=== PATIENT | female | born 1965 | race African-American/Black ===

== ENCOUNTER 2017-09-24 13:19 | Inpatient (IN) | payer BC, MEDICAID ==
[2017-09-24 14:38] LABS: ABS Basophils 0.1 10^3/ul (0-0.2); ABS Eosinophils 0 10^3/ul (0-0.6); ABS Lymphocytes 1.1 10^3/ul (1.0-4.8); ABS Monocytes 0.6 10^3/ul (0-0.8); ABS Neutrophils 7.5 10^3/ul (1.5-7.7); ABS Nucleated RBC 0 10^3/ul; Eosinophil % 0 % (0-6); Hematocrit 37 % (35-47); Hemoglobin 12.1 g/dl (12.0-16.0); Lymphocyte % 12.1 % (25-47); Mean Corpuscular HGB Conc 33 g/dl (31-36); Mean Corpuscular Hemoglobin 28 pg (27-31); Mean Corpuscular Volume 87 fL (80-97); Mean Platelet Volume 8 um3 (7.4-10.4); Nucleated Red Blood Cells % 0.1; Platelet Count 333 10^3/ul (150-450); Red Blood Count 4.25 10^6/ul (4.0-5.4); Red Cell Distribution Width 14 % (10.5-15); White Blood Count 9.3 10^3/ul (3.5-10.8)
[2017-09-24 14:52] LABS: EGFR Non-African American 63.3 (>60)
[2017-09-24 18:11] LABS: Urine Appearance Cloudy; Urine Blood Negative (Negative); Urine Color Yellow; Urine Ketones 1+ (Negative); Urine Protein 1+(30 mg/dL) (Negative); Urine Specific Gravity 1.024 (1.010-1.030); Urine Urobilinogen Negative (Negative)
--- NOTE | 2017-09-25 05:00 | PN ---
I, Magali Vergara, scribed for Art Keyes MD on 09/25/17 at 0433 . Progress Note - Progress Note Date of Service: 09/25/17 Note: COURSE Pt was signed off from Dr. Merritt upon shift change. Pt was stable through the night. Pt was evaluated, but they are still waiting on placement for her with intended replacement to the facility she was recently discharged from in [place]. The documentation as recorded by the scribeUrsula Emily accurately reflects the service I personally performed and the decisions made by me, Art Keyes MD.
--- NOTE | 2017-09-25 09:33 | PN ---
ED Flex Patient Progress Note Date of Service: 09/25/17 Subjective: This is a 52 year-old F who is pending transfer/replacement to another psychiatric assisted care facility in [place] secondary to psychosis. Pt offers no complaints at this time and is currently sleeping. Objective: Vitals: Most recent vital signs documented below. General NAD, Alert and oriented x3. Heart: rrr at 79 bpm Lungs: CTA or with rales, rhonchi, wheezing Laboratory: Current laboratory results documented below. 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 Christiana TIM is speaking with Dr Velazquez as she is being told by [facility] that they do not have an available bed at this time. patient is on an MHU Hold at this time. Plan: Pending psychiatric transfer. will follow up daily. Vital Signs Temp Pulse Resp BP Pulse Ox 99.9 F 79 16 121/61 99 09/25/17 07:47 09/25/17 07:47 09/25/17 07:47 09/25/17 07:47 09/25/17 07:47 Lab Results - Entire Visit 09/24/17 09/24/17 09/24/17 17:32 17:32 14:25 WBC 9.3 RBC 4.25 Hgb 12.1 Hct 37 MCV 87 MCH 28 MCHC 33 RDW 14 Plt Count 333 MPV 8 Neut % (Auto) 81.0 Lymph % (Auto) 12.1 L [place] % (Auto) 6.1 Eos % (Auto) 0 Baso % (Auto) 0.8 Absolute Neuts (auto) 7.5 Absolute Lymphs (auto) 1.1 Absolute Monos (auto) 0.6 Absolute Eos (auto) 0 Absolute Basos (auto) 0.1 Absolute Nucleated RBC 0 Nucleated RBC % 0.1 Sodium Potassium Chloride Carbon Dioxide Anion Gap BUN Creatinine Est GFR ( Amer) Est GFR (Non-Af Amer) BUN/Creatinine Ratio Glucose Calcium Total Bilirubin AST ALT Alkaline Phosphatase Total Protein Albumin Globulin Albumin/Globulin Ratio TSH Urine Color Yellow Urine Appearance Cloudy Urine pH 6.0 Ur Specific [place] 1.024 Urine Protein 1+(30 mg/dl) A Urine Ketones 1+ A Urine Blood Negative Urine Nitrate Negative Urine Bilirubin Negative Urine Urobilinogen Negative Ur Leukocyte Esterase 1+ A Urine WBC (Auto) 2+(11-20/hpf) A Urine RBC (Auto) Absent Ur Squamous Epith Cells Present A Urine Bacteria Absent Hyaline Casts Present A Urine Glucose Negative Urine Ascorbic Acid * A Salicylates Urine Opiates Screen None detected Acetaminophen Ur Barbiturates Screen None detected Ur Phencyclidine Scrn None detected Ur Amphetamines Screen None detected U Benzodiazepines Scrn None detected Urine Cocaine Screen None detected U Cannabinoids Screen None detected Serum Alcohol 09/24/17 14:25 WBC RBC Hgb Hct MCV MCH MCHC RDW Plt Count MPV Neut % (Auto) Lymph % (Auto) [place] % (Auto) Eos % (Auto) Baso % (Auto) Absolute Neuts (auto) Absolute Lymphs (auto) Absolute Monos (auto) Absolute Eos (auto) Absolute Basos (auto) Absolute Nucleated RBC Nucleated RBC % Sodium 136 Potassium 3.1 L Chloride 97 L Carbon Dioxide 30 Anion Gap 9 BUN 15 Creatinine 0.93 Est GFR ( Amer) 81.4 Est GFR (Non-Af Amer) 63.3 BUN/Creatinine Ratio 16.1 Glucose 94 Calcium 9.3 Total Bilirubin 0.90 AST 27 ALT 17 Alkaline Phosphatase 46 Total Protein 7.1 Albumin 4.1 Globulin 3.0 Albumin/Globulin Ratio 1.4 TSH 1.37 Urine Color Urine Appearance Urine pH Ur Specific [place] Urine Protein Urine Ketones Urine Blood Urine Nitrate Urine Bilirubin Urine Urobilinogen Ur Leukocyte Esterase Urine WBC (Auto) Urine RBC (Auto) Ur Squamous Epith Cells Urine Bacteria Hyaline Casts Urine Glucose Urine Ascorbic Acid Salicylates < 2.50 Urine Opiates Screen Acetaminophen < 15 Ur Barbiturates Screen Ur Phencyclidine Scrn Ur Amphetamines Screen U Benzodiazepines Scrn Urine Cocaine Screen U Cannabinoids Screen Serum Alcohol < 10
--- NOTE | 2017-09-25 10:02 | ED ---
[place] Julia, scribed for Meir Merritt MD on 09/24/17 at 1413 . Psychiatric Complaint - HPI Summary HPI Summary: This patient is a 52 year old F BIBA, to [facility] without complaint. She states she doesnt know why she is here and that someone called an ambulance for her while she was at a caf. HPI is limited due to patients mental status. - History Of Current Complaint Time Seen by Provider: 09/24/17 13:52 Hx Obtained From: Patient Related History: Positive For: Prior Psychiatric Issues - Allergies/Home Medications Allergies/Adverse Reactions: Allergies Allergy/AdvReac Type Severity Reaction Status Date / Time Unable to Assess Allergy Verified 08/31/17 13:15 Home Medications: Home Medications NK [No Home Medications Reported] 09/24/17 [History Confirmed 09/24/17] PMH/Surg Hx/FS Hx/Imm Hx Psychiatric History: Reports: Hx Community Mental Health Tx, Hx Schizophrenia Denies: Hx Eating Disorder, Hx of Violent Episodes Against Others - Family History Known Family History: Positive: Unknown - FMHx is unattainable due to patients current mental status - Social History Substance Use Type: Reports: None Review of Systems Constitutional: Negative - does not have any complaints All Other Systems Reviewed And Are Negative: Yes - Comments Additional Review of Systems Comments: ROS is limited due to patient's mental state. Physical Exam - Summary Physical Exam Summary: Appearance: The patient is well-nourished in no acute distress and in no acute pain. Skin: The skin is warm and dry and skin color reflects adequate perfusion. HEENT: The head is normocephalic and atraumatic. The pupils are equal and reactive. The conjunctivae are clear and without drainage. Nares are patent and without drainage. Mouth reveals moist mucous membranes and the throat is without erythema and exudate. The external ears are intact. The ear canals are patent and without drainage. The tympanic membranes are intact. Neck: the neck is supple with full range of motion and non-tender. There are no carotid bruits. There is no neck vein distension. Respiratory: Chest is non-tender. Lungs are clear to auscultation and breath sounds are symmetrical and equal. Cardiovascular: Heart is regular rate and rhythm. There is no murmur or rub auscultated. There is no peripheral edema and pulses are symmetrical and equal. Abdomen: The abdomen is soft and non-tender. There are normal bowel sounds heard in all four quadrants and there is no organomegaly palpated. Musculoskeletal: There is no back tenderness noted. Extremities are non-tender with full range of motion. There is good capillary refill. There is no peripheral edema or calf tenderness elicited. Neurological: Patient is alert and oriented to person, place and time. The patient has symmetrical motor strength in all four extremities. Cranial nerves are grossly intact. Deep tendon reflexes are symmetrical and equal in all four extremities. Psychiatric: The patient is guarding and possibly attending to internal stimuli. Triage Information Reviewed: Yes Vital Signs On Initial Exam: Initial Vitals Temp Pulse Resp BP Pulse Ox 97.6 F 96 16 145/88 96 09/24/17 14:03 09/24/17 14:03 09/24/17 14:03 09/24/17 14:03 09/24/17 14:03 Vital Signs Reviewed: Yes Diagnostics - Vital Signs Vital Signs Temp Pulse Resp BP Pulse Ox 09/25/17 07:47 99.9 F 79 16 121/61 99 09/25/17 06:55 100.7 F 82 18 132/79 96 09/24/17 22:50 97.8 F 88 16 138/84 98 09/24/17 14:03 97.6 F 96 16 145/88 96 - Laboratory Lab Results: Lab Results 09/24/17 09/24/17 09/24/17 Range/Units 14:25 14:25 17:32 WBC 9.3 (3.5-10.8) 10^3/ul RBC 4.25 (4.0-5.4) 10^6/ul Hgb 12.1 (12.0-16.0) g/dl Hct 37 (35-47) % MCV 87 (80-97) fL MCH 28 (27-31) pg MCHC 33 (31-36) g/dl RDW 14 (10.5-15) % Plt Count 333 (150-450) 10^3/ul MPV 8 (7.4-10.4) um3 Neut % (Auto) 81.0 (38-83) % Lymph % (Auto) 12.1 L (25-47) % [place] % (Auto) 6.1 (0-7) % Eos % (Auto) 0 (0-6) % Baso % (Auto) 0.8 (0-2) % Absolute Neuts (auto) 7.5 (1.5-7.7) 10^3/ul Absolute Lymphs (auto) 1.1 (1.0-4.8) 10^3/ul Absolute Monos (auto) 0.6 (0-0.8) 10^3/ul Absolute Eos (auto) 0 (0-0.6) 10^3/ul Absolute Basos (auto) 0.1 (0-0.2) 10^3/ul Absolute Nucleated RBC 0 10^3/ul Nucleated RBC % 0.1 Sodium 136 (133-145) mmol/L Potassium 3.1 L (3.5-5.0) mmol/L Chloride 97 L (101-111) mmol/L Carbon Dioxide 30 (22-32) mmol/L Anion Gap 9 (2-11) mmol/L BUN 15 (6-24) mg/dL Creatinine 0.93 (0.51-0.95) mg/dL Est GFR ( Amer) 81.4 (>60) Est GFR (Non-Af Amer) 63.3 (>60) BUN/Creatinine Ratio 16.1 (8-20) Glucose 94 (70-100) mg/dL Calcium 9.3 (8.6-10.3) mg/dL Total Bilirubin 0.90 (0.2-1.0) mg/dL AST 27 (13-39) U/L ALT 17 (7-52) U/L Alkaline Phosphatase 46 (34-104) U/L Total Protein 7.1 (6.4-8.9) g/dL Albumin 4.1 (3.2-5.2) g/dL Globulin 3.0 (2-4) g/dL Albumin/Globulin Ratio 1.4 (1-3) TSH 1.37 (0.34-5.60) mcIU/mL Urine Color Urine Appearance Urine pH (5-9) Ur Specific [place] (1.010-1.030) Urine Protein (Negative) Urine Ketones (Negative) Urine Blood (Negative) Urine Nitrate (Negative) Urine Bilirubin (Negative) Urine Urobilinogen (Negative) Ur Leukocyte Esterase (Negative) Urine WBC (Auto) (Absent) Urine RBC (Auto) (Absent) Ur Squamous Epith Cells (Absent) Urine Bacteria (Absent) Hyaline Casts (Absent) Urine Glucose (Negative) Urine Ascorbic Acid (Negative) Salicylates < 2.50 (<30) mg/dL Urine Opiates Screen None detected (None Detect) Acetaminophen < 15 mcg/mL Ur Barbiturates Screen None detected (None Detect) Ur Phencyclidine Scrn None detected (None Detect) Ur Amphetamines Screen None detected (None Detect) U Benzodiazepines Scrn None detected (None Detect) Urine Cocaine Screen None detected (None Detect) U Cannabinoids Screen None detected (None Detect) Serum Alcohol < 10 (<10) mg/dL 09/24/17 Range/Units 17:32 WBC (3.5-10.8) 10^3/ul RBC (4.0-5.4) 10^6/ul Hgb (12.0-16.0) g/dl Hct (35-47) % MCV (80-97) fL MCH (27-31) pg MCHC (31-36) g/dl RDW (10.5-15) % Plt Count (150-450) 10^3/ul MPV (7.4-10.4) um3 Neut % (Auto) (38-83) % Lymph % (Auto) (25-47) % [place] % (Auto) (0-7) % Eos % (Auto) (0-6) % Baso % (Auto) (0-2) % Absolute Neuts (auto) (1.5-7.7) 10^3/ul Absolute Lymphs (auto) (1.0-4.8) 10^3/ul Absolute Monos (auto) (0-0.8) 10^3/ul Absolute Eos (auto) (0-0.6) 10^3/ul Absolute Basos (auto) (0-0.2) 10^3/ul Absolute Nucleated RBC 10^3/ul Nucleated RBC % Sodium (133-145) mmol/L Potassium (3.5-5.0) mmol/L Chloride (101-111) mmol/L Carbon Dioxide (22-32) mmol/L Anion Gap (2-11) mmol/L BUN (6-24) mg/dL Creatinine (0.51-0.95) mg/dL Est GFR ( Amer) (>60) Est GFR (Non-Af Amer) (>60) BUN/Creatinine Ratio (8-20) Glucose (70-100) mg/dL Calcium (8.6-10.3) mg/dL Total Bilirubin (0.2-1.0) mg/dL AST (13-39) U/L ALT (7-52) U/L Alkaline Phosphatase (34-104) U/L Total Protein (6.4-8.9) g/dL Albumin (3.2-5.2) g/dL Globulin (2-4) g/dL Albumin/Globulin Ratio (1-3) TSH (0.34-5.60) mcIU/mL Urine Color Yellow Urine Appearance Cloudy Urine pH 6.0 (5-9) Ur Specific [place] 1.024 (1.010-1.030) Urine Protein 1+(30 mg/dl) A (Negative) Urine Ketones 1+ A (Negative) Urine Blood Negative (Negative) Urine Nitrate Negative (Negative) Urine Bilirubin Negative (Negative) Urine Urobilinogen Negative (Negative) Ur Leukocyte Esterase 1+ A (Negative) Urine WBC (Auto) 2+(11-20/hpf) A (Absent) Urine RBC (Auto) Absent (Absent) Ur Squamous Epith Cells Present A (Absent) Urine Bacteria Absent (Absent) Hyaline Casts Present A (Absent) Urine Glucose Negative (Negative) Urine Ascorbic Acid * A (Negative) Salicylates (<30) mg/dL Urine Opiates Screen (None Detect) Acetaminophen mcg/mL Ur Barbiturates Screen (None Detect) Ur Phencyclidine Scrn (None Detect) Ur Amphetamines Screen (None Detect) U Benzodiazepines Scrn (None Detect) Urine Cocaine Screen (None Detect) U Cannabinoids Screen (None Detect) Serum Alcohol (<10) mg/dL Result Diagrams: 09/24/17 14:25 09/24/17 14:25 Lab Statement: Any lab studies that have been ordered have been reviewed, and results considered in the medical decision making process. - EKG 1629 Cardiac Rate: NL - 86 BPM EKG Rhythm: Sinus Rhythm EKG Interpretation: early repolarization, no LVH Course/Dx - Course Course Of Treatment: Ms. Rudd has apparently been hospitalized for an extended period of time in [place]. She was just recently released and then apparently was found today at her ex husbands office, She was not very communicative and not making much sense when she tried and brought here on a 941 status. She has been medically cleared and is being evaluated by the [facility]. - Differential Dx/Clinical Impression Provider Diagnosis: Psychosis Discharge - Discharge Plan Condition: Stable Disposition: OTHER Discharge Disposition Comment: Signed out to Dr. Keyes at change of shift Referrals: Kristen Huffman MD [Primary Care Provider] - The documentation as recorded by the Balta reynolds Julia accurately reflects the service I personally performed and the decisions made by me, Meir Merritt MD.
[2017-09-25] MEDS ORDERED: Al Hydrox/Mg Hydrox/Simet LIQ* 30 ML UDC PO PRN (13:11)
[2017-09-25] MEDS ORDERED: OLANzapine TAB* 10 MG PO SCH (21:00)
--- NOTE | 2017-09-26 00:45 | HP ---
HISTORY AND PHYSICAL: DATE OF ADMISSION: 09/25/2017. SOURCE OF INFORMATION: The patient is a limited historian. This note is based on interview with the patient, review of previous records, and admission data. IDENTIFYING INFORMATION: Ms. Rudd is a 52-year-old, , [place]- French female with documented history of schizophrenia, paranoid type, who was last admitted in our facility in 2012 and was transferred to [facility] for long- term treatment. Notes indicate that she remained there for 5 years until about 09/08/17 when she reportedly signed herself out against medical advice. The patient herself asserts that she was discharged. She used what little money she had to take a bus to [place] and to stay at a local inn from 09/08/17 to 09/20/17 , when she reportedly ran out of money, became homeless, and had no way of feeding herself. Reportedly, she was brought in by EMS due to concern about her decompensating mental state and inability to care for herself in the community. The patient apparently went to [place], where her ex- works and he notified [place] Police and she was driven to the emergency room of this hospital and was subsequently admitted. REVIEW OF SYMPTOMS: She denies persistently depressed mood. She denies symptoms of gabby. She avidly denies auditory or visual hallucinations or delusions. She is reasonably organized in her thinking and behavior, but she presents with alogia, anergia, and flat affect. She denies problems with anxiety. She denies trauma, PTSD symptoms. Denies symptoms of eating disorder , but presents as severely malnourished. PAST PSYCHIATRIC HISTORY: The patient has history of multiple previous admissions here and in [place] for treatment of psychosis. She had outpatient care at [facility] in the past with psychiatrist, Teri Taylor, and therapist, Roz Llanes. She was diagnosed in the past with psychosis and later with chronic paranoid schizophrenia. She has had trial of olanzapine, Haldol, and risperidone, and was last discharged on olanzapine. She does not have any history of attempted suicide, self-injury, or violent behavior. PAST MEDICAL HISTORY: The patient denies any active medical problems. FAMILY HISTORY: Previous record indicates sister with similar condition and grandmother with potential mental health symptoms. SUBSTANCE ABUSE HISTORY: The patient denies. SOCIAL HISTORY: She was brought and raised in [facility] by both parents, had 3 sisters and 2 brothers. Her third brother when she was teenager. She came to the [place] in [place] and in 1986 and in 2001. She has 15 -year-old daughter and a 13-year-old son. She reports with tears in her eyes that she has not seen her children in 5-1/2 years. She graduated from [employer] and she worked in the past at [employer]. REVIEW OF SYSTEMS: The patient presents as severely malnourished. PHYSICAL EXAMINATION GENERAL: The patient is a 52-year-old black female, who appears severely malnourished. She does not, however, appear to be in any acute physical distress. She is alert, oriented x3. VITAL SIGNS: On admission, blood pressure is 132/79, pulse is 82, respirations 18, temperature is 100.7. HEENT: Mucous membranes are dried up and flaking. HEENT: Head, atraumatic, normocephalic, symmetrical. Eyes, PERRLA. Tympanic membranes intact. Sclerae anicteric. Conjunctivae clear. NECK: Trachea midline, freely mobile. No cervical lymphadenopathy. No nuchal rigidity. LUNGS: Clear to auscultation bilaterally. HEART: Regular rate and rhythm. S1 and S2. No murmurs, gallops, or rubs. ABDOMEN: Soft, nontender. No masses, organomegaly, or rebound tenderness. Active bowel sounds in all 4 quadrants. EXTREMITIES: No pain or limitation in range of movement. Pulses are equal and adequate in all 4 extremities. NEUROLOGIC: Cranial nerves II through XII intact. Cerebellar function intact. Muscle strength is 2/5 in all 4 extremities. STRUCTURAL EXAM: The patient examined in both supine and upright positions. No gross AP or lateral asymmetry. The patient walked very slowly and with difficulty. SKIN: Dry. MENTAL STATUS EXAMINATION: Finds a cachectic, 52-year-old, black female, who is poorly groomed, dressed in hospital scrubs. She is found in bed, seems surprised at the calling of her name. She has to be helped by nursing staff to get out of bed. She walks slowly but denies any pain. Speech is terse. She exhibits a significant degree of psychomotor retardation. No abnormal movements are observed. Her thoughts are linear but impoverished. No overt delusions, and she denies auditory or visual hallucinations. Her insight and judgment are grossly impaired. Impulse control is good in this setting. She is alert. She is oriented to time, place, and person. Attention, memory, and concentration are all poor. LABORATORY DATA: On admission, CBC within normal limits. Complete metabolic panel shows potassium of 3.1, chloride of 97. Urinalysis: 1+ protein, 1+ ketones, 1+ leukocyte esterase, 2+ wbc's, presence of squamous epithelial cells , and hyaline cast. Urine toxicology screen is negative for all tested substances. SUMMARY: A 52-year-old woman with history of psychiatric hospitalizations, previous diagnoses of psychosis and chronic paranoid schizophrenia, who recently came out of long-term stay from [facility] and returned to this community with little means to support herself. The patient was brought in by EMS from the community because of her inability to take care for herself. Medical history is remarkable for malnutrition. There is family history of the patient having relatives with similar symptoms. The patient described stressors of homelessness, not having seen her children in years, and desire to stay in this community. DIAGNOSTIC IMPRESSION: Chronic paranoid schizophrenia. TREATMENT PLAN: Admit to mental health unit. 15-minute checks. Full code status. Legal status is emergency. Initial comprehensive, milieu, individual, and group psychotherapeutic supports. Medication management will involve restarting the patient on risperidone after clarifying the last dose she was on. The patient is agreeable to continuing the medication. Discharge planning will involve coordination of her aftercare with [facility]. [id number]/[facility] #: [id number] MERY
[2017-09-26] MEDS: risperiDONE TAB* 2 MG PO SCH (01:00)
[2017-09-26] MEDS: Vitamin THERAPEUTIC TAB PO SCH (09:01)
[2017-09-27] MEDS: Vitamin THERAPEUTIC TAB PO SCH (09:09)
--- NOTE | 2017-09-27 15:02 | PN ---
[facility]: Group Therapy Note - Service Type Service Type: [id number] Group Psychotherapy - Cognitive Behavioral Group Therapy ( CBT):Patient attended CBT programming this morning and presented with flat affect that did not vary with discussion. Although responsive to direct prompts to respond to questions, patient did not engage in spontaneous conversation.
--- NOTE | 2017-09-27 18:01 | PN ---
Subjective - Subjective Date of Service: 09/27/17 Subjective: Melissa is visible in the milieu, showing more affect, she endorses restful sleep , euthymic mood, denies SI/HI or A/VH. She denies side effects after restarting Risperidone. She is hopeful for discharge with [facility] and [facility]. Per staff, she has been adherent to unit's routines. Objective - Appearance Appearance: Thin Framed Dysmorphic Features: No Hygiene: Normal Grooming: Fairly Well Kept - Behavior Psychomotor Activities: Normal Exhibits Abnormal Movement: No - Attitude and Relatedness Attitude and Relatedness: Cooperative Eye Contact: Fair - Speech Quality: Unpressured Latencies: Normal Quantity: Appropriate - Mood Patient's Decription of Mood: "Okay" - Affect Observed Affect: Non-labile Affect Consistent with: Euthymia - Thought Process Patient's Thought Process: Coherent, Impoverished Thought Content: No Passive Wish, No Suicidal Planning, No Homicidal Ideation, No Paranoid Ideation - Sensorium Experiencing Hallucinations: No, Sensorium is Clear - Level of Consciousness Level of Consciousness: Alert Orientation: Yes Intact - Impulse Control Impulse Control: Intact - Insight and Judgement Insight and Judgement: Fair - Group Participation Particating in Group Activities: Yes - Medication Management Medication Management Adherence: Yes Assessment - Assessment Merits Inpatient Hospitalization: For Ongoing Evaluation, Consolidate Improvements, For Discharge Planning Inpatient DSM-V Dx: F20.0 Clinical Impression: SUMMARY: A 52-year-old woman with history of psychiatric hospitalizations, previous diagnosis of psychosis and chronic paranoid schizophrenia who recently came out of long-term stay from [facility] and returned to this community with little means to support herself. There are some divergences as to whether or not the patient was brought in by EMS from the community after people called to report that she looked unable to take care of herself or whether the patient showed up at at her ex- 's job and was brought in by [place] Police. Medical history is remarkable for malnutrition. There is family history of the patient having relatives with similar symptoms. The patient described stressors of homelessness, not having seen her children in years, and desire to stay in this community. Adjusting well to this setting, reporting lower distress level, denying psychotic symptoms, tolerating restarting of Risperidone. She needs continued admission for discharge planning. Plan - Plan Treatment Plan: Name: MELISSA FELIZ Birthdate: 1965 [id number] Continued Medication Management: Continue Outpt Medication Medications: Current Medications Acetaminophen (Tylenol Tab*) 650 mg PO Q4H PRN PRN Reason: PAIN or TEMP > 101 F Al Hydrox/Mg Hydrox/Simethicone (Maalox Plus*) 30 ml PO Q4H PRN PRN Reason: INDIGESTION Multivitamins (Theragran Tab*) 1 tab PO DAILY [facility] Last Admin: 09/27/17 09:09 Dose: 1 tab Risperidone (Risperdal*) 2 mg PO BEDTIME [facility] Last Admin: 09/27/17 00:00 Dose: Not Given - Discharge Plan Discharge Plan: Outpatient Follow Up Outpatient Program: [facility]
[2017-09-27] MEDS: risperiDONE TAB* 2 MG PO SCH ×2 (20:58)
[2017-09-28] MEDS: Vitamin THERAPEUTIC TAB PO SCH (09:44)
--- NOTE | 2017-09-28 11:49 | PN ---
Subjective - Subjective Subjective: PSYCHIARIC ATTENDING PROGRESS NOTE: Dr. Velazquez's admitting psychiatric evaluation (H and P) reviewed and appreciated. to summarize, patient is a 52 yo woman of [facility] heritage with a history of onset of mental illness after of her two children who are ages 15 and 17 currently. patient would have been in her mid 30's. Prior to that she denies history of mental illness. 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 they moved to [place], raised a family. ultimately has multiple psychiatric hospitalizations, was diagnosed with paranoid schizophenia. patient transferred to [facility] from [facility] 5 years ago. patient was discharged from that institution two weeks ago. It is presently unclear whether she was discharged or signed herself out against medical advise. In either case she lived in a motel with barron she had and then ran out of money. She showed up at her ex husbands place of work at [employer] recently. She was felt to be decompensated in her mental status and unable to take care of herself. She also was mute and showing significant psychomotor slowing. she was brought to hospital for further evaluation. I met with patient and my impression of patient's mental status evaluation lines up very closely with that of Dr. Velazquez's. patient presented as poorly related, with intense eye contact. physical appearance shows a 52 year old dark skinned woman who is underweight, has poor nutritional status including temporal wasting and greatly reduced subcutaneous fat stores. Her eyes are sunken. Her hair shows thinning but no bald spots. psychomotor behavior is markely slowed with decreased spontaneity, bradykinesia, slow speech, increased latency in response time. Mood: is dysphoric affect is both flat, blunted with no range in responses and very low amplitude, thought process: patient able to carry out linear, and coherent conversation but she has attentional difficulties and at times misundertands what has been asked of her, while other times her responses start logical but then she fails to complete her response likely due to thought blocking. Thought content is impoverished. she has diminished fluency. insight and judgment severely impaired. patient is alert and fully oriented in all spheres. labs: urine shows leukoesterase and WBC present but all else negative. CBC, CMP both negative toxicology screen negative. Impression: schizophrenia with prominenet negative symptoms and thought disorder. no evidence of delusions or hallucionations at this time. patient is homeless and in need of benefits and placement. she needs some degree of supervision and assistance given her limited capacity to live independently. She is highly malnourished which needs to be worked up to rule out presence of organic cause Plan;' nutritional consult weekly weight hospitalist consult with regard to Failure to thrive/severely lowBMI d/c risperdal as patient requested change to Zyprexa stating that her appetite/weight were increased on this medicaiton in past. also mentioned that her ex who came inyesterday to bring in her medical insurance card, also requested she be changed to zyprexa which helped her in past. will send esr, new UA and C and S due to wbc/leukoesterase positivity, b12 and folate levels Assessment - Assessment Inpatient DSM-V Dx: F20.0 Plan - Plan Treatment Plan: Name: JENNIFER FELIZ Birthdate: 1965 [id number] Medications: Current Medications Acetaminophen (Tylenol Tab*) 650 mg PO Q4H PRN PRN Reason: PAIN or TEMP > 101 F Al Hydrox/Mg Hydrox/Simethicone (Maalox Plus*) 30 ml PO Q4H PRN PRN Reason: INDIGESTION Multivitamins (Theragran Tab*) 1 tab PO DAILY ANGIE Last Admin: 09/28/17 09:44 Dose: 1 tab Olanzapine (Zyprexa Tab*) 10 mg PO BEDTIME ANGIE
[2017-09-28 19:20] LABS: Urine Appearance Cloudy; Urine Blood Negative (Negative); Urine Color Yellow; Urine Ketones Trace (Negative); Urine Protein Negative (Negative); Urine Specific Gravity 1.027 (1.010-1.030); Urine Urobilinogen Negative (Negative)
[2017-09-28] MEDS: OLANzapine TAB* 10 MG PO SCH (20:53)
[2017-09-29] MEDS: Vitamin THERAPEUTIC TAB PO SCH (08:22)
--- NOTE | 2017-09-29 12:05 | PN ---
Subjective - Subjective Subjective: Psychiatric Attending Progress Note: Met with Ms. Rudd X 30 min Started on Zyprexa 10 mg two days ago, reports no side effects. Zyprexa was Melissa's choice as she remembers taking this medication 5 years ago and believes that it helped increase her appetite. She has fairly good insight about the fact that she is underweight and is hoping that the Zyprexa will help her gain weight. Melissa was somewhat more spontaneous and engaged in interview today. Although her affect remains flat and blunted, she clearly and effectively communicated several points which she feels strongly about. The main one is that of seeing her children. She became tearful when talking about having missed 5 years of her children's lives. Whereas yesterday she was unable to remember their ages or birthdays. today she gave me their birthdays with minimal latency in response time. From these dates her children would be 17 and 15. Melissa also told me that she feels she can manage living alone in her own apartment. I asked her whether she could cook her own meals, complete her ADL's, shop in public and clean. She indicated that she could do all these things. My sense is that she would need assistance or supervision She was open to living in a placement that offers some supervision as long as she had her own room Melissa shared some information about her life over past 5 years. She was positive about her experience at the [facility]. no devaluation. I believe that she has gained insight about her illness. she did not object to my multiple references to her as having mental illness. She told me she had many siblings in [place] and one brother in [place]. 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 Melissa seemed happy when I shared that the team supports Melissa's reunification with her children and believe that visitation would be a very good thing both for her children and for Melissa. She told me that she had spoken with foundry worker apprentice Yesy who is going to facillitate this process by contacting her ex who has custody of her childrenand with whom they live. Objective - Appearance Appearance: Other - malnourished Dysmorphic Features: No Hygiene: Dirty Grooming: Disheveled - Behavior Psychomotor Activities: Abnormal-Decreased Exhibits Abnormal Movement: No - Attitude and Relatedness Attitude and Relatedness: Psychotically Related Eye Contact: Good - Speech Quality: Unpressured Latencies: Short Quantity: Terse - Mood Patient's Decription of Mood: "Okay" - Affect Observed Affect: Unvariable - blunted, flat Affect Consistent with: Dysphoria - Thought Process Patient's Thought Process: Impoverished Thought Content: No Passive Wish, No Suicidal Planning, No Homicidal Ideation, No Paranoid Ideation - Sensorium Experiencing Hallucinations: No, Sensorium is Clear Type of Hallucinations: Visual: No, Auditory: No, Command: No - Level of Consciousness Level of Consciousness: Alert Orientation: Yes Intact, Yes Orientated to Time, Yes Orientated to Place, Yes Orientated to Person - Impulse Control Impulse Control: Intact - Insight and Judgement Insight and Judgement: Fair - Group Participation Particating in Group Activities: Yes - Medication Management Medication Management Adherence: Yes Assessment - Assessment Merits Inpatient Hospitalization: For Stabilization, Consolidate Improvements, For Discharge Planning Inpatient DSM-V Dx: F20.0 Clinical Impression: 52 year old woman with schizophrenia post onset (20 years ago) who was discharged from [facility] 2 weeks ago after a 5 year hospital stay. At this time, patient has mostly negative symptoms including affective flattenting, poor ADL's, impoverished thinking/speech She also appears depressed and has psychomotor slowing. she shows no evidence of paranoia, delusional beliefs, perceptual disturbances, suicidality, or agression. She is very underweight (105 pounds). goal of hospitalization is to find suitable placement, stabalize patient on medication regimen for maintenance treatment of her psychotic disorder, improve her nutritional status and establish regimen which supports weight gain. Plan - Plan Treatment Plan: Plan: Zyprexa 10 mg for maintenance treatment of Schizophrenia Add Cyproheptadine 4 mg BID to stimulate appetite Nutrition consult requested to optimize weight gain Ensure Plus 4 cans daily. patient agrees to drink them weight today and weekly on same scale facillitate visitation with children if possible discharge planning per social work. my recommendatin would be that patient will need some degree of supervision as I do not feel she will be able to manage all the challenges of living independently. food stamps, barron assistance, SS/disability are all entitlements which patient qualifies for. I encouraged her to seek SSI if she doesnt already receive it.
--- NOTE | 2017-09-29 12:06 | PN ---
MHU: Group Therapy Note - Service Type Service Type: [id number] Group Psychotherapy - Cognitive Behavioral Group Therapy ( CBT):Patient attended CBT programming this morning and presented with flat affect that did not vary with discussion. Although responsive to direct prompts to respond to questions, patient did not engage in spontaneous conversation.
[2017-09-29] MEDS: OLANzapine TAB* 10 MG PO SCH (20:47)
[2017-09-30] MEDS: Vitamin THERAPEUTIC TAB PO SCH (08:54)
--- NOTE | 2017-09-30 11:15 | PN ---
Subjective - Subjective Subjective: Psychiatric Attending Progress Note: met with patient X 15 min today Melissa presents as flat, disheveled, with poor hygiene but not malodorous. Her mood is described as "ok" but she is mildly irritable. I asked her in more detail about her 5 years at the [facility]. I asked whether she cooperated with treatment. she states she always took her medication. She denies that she was ever offered to discharge from that institution until this past August. We talked about her children coming to visit which is something she requested. I related that social media manager from the unit would arrange a meeting with . Her non verbal response showed resistance, so I asked her about that. she told me she didnt wish him to be involved. she related that she believes that her was partially responsible for her lengthy stay in the [facility]. As I do not have the facts about the reasons for her length of stay, i was unable to comment. I did explain that to her however that the purpose of meeting with was to help with any barriers which may be present in terms of husbands willingness to bring yani to visit. I reassured her that this was the only reason for having contact with . also assured her she would be present during any future meeting. she indicated her understanding. denies side effects from medication we talked about cyproheptadine and she gave consent as she does wish to gain weight She met with morgue technician today and was receptive to increasing caloric intake to promote weight gain. Objective - Appearance Appearance: Thin Framed Dysmorphic Features: No Hygiene: Dirty Grooming: Disheveled - Behavior Psychomotor Activities: Abnormal-Decreased - Attitude and Relatedness Attitude and Relatedness: Psychotically Related Eye Contact: Fair - Speech Quality: Unpressured Latencies: Short Quantity: Terse - Mood Patient's Decription of Mood: "Okay" - Affect Observed Affect: Constricted - blunted Affect Consistent with: Dysphoria - Thought Process Patient's Thought Process: Impoverished Thought Content: No Passive Wish, No Suicidal Planning, No Homicidal Ideation, No Paranoid Ideation - Sensorium Experiencing Hallucinations: No, Sensorium is Clear Type of Hallucinations: Visual: No, Auditory: No, Command: No - Level of Consciousness Level of Consciousness: Alert Orientation: Yes Intact, Yes Orientated to Time, Yes Orientated to Place, Yes Orientated to Person - Impulse Control Impulse Control: Intact - Insight and Judgement Insight and Judgement: Fair - Group Participation Particating in Group Activities: Yes - Medication Management Medication Management Adherence: Yes Assessment - Assessment Inpatient DSM-V Dx: F20.0 Clinical Impression: 52 year old woman with schizophrenia post onset (20 years ago) who was discharged from [facility] 2 weeks ago after a 5 year hospital stay. At this time, patient has mostly negative symptoms including affective flattenting, poor ADL's, impoverished thinking/speech She also appears depressed and has psychomotor slowing. she shows no evidence of paranoia, delusional beliefs, perceptual disturbances, suicidality, or agression. She is very underweight (105 pounds). goal of hospitalization is to find suitable placement, stabalize patient on medication regimen for maintenance treatment of her psychotic disorder, improve her nutritional status and establish regimen which supports weight gain. Plan - Plan Treatment Plan: Plan: Zyprexa 10 mg for maintenance treatment of Schizophrenia Add Cyproheptadine 4 mg BID to stimulate appetite Nutrition consult requested to optimize weight gain Ensure Plus 4 cans daily. patient agrees to drink them weight today and weekly on same scale facillitate visitation with children if possible discharge planning per social work. my recommendatin would be that patient will need some degree of supervision as I do not feel she will be able to manage all the challenges of living independently. food stamps, barron assistance, SS/disability are all entitlements which patient qualifies for. I encouraged her to seek SSI if she doesnt already receive it. Medications: Current Medications Acetaminophen (Tylenol Tab*) 650 mg PO Q4H PRN PRN Reason: PAIN or TEMP > 101 F Al Hydrox/Mg Hydrox/Simethicone (Maalox Plus*) 30 ml PO Q4H PRN PRN Reason: INDIGESTION Cyproheptadine HCl (Periactin Tab*) 4 mg PO BID@,16 ANGIE Multivitamins (Theragran Tab*) 1 tab PO DAILY ANGIE Last Admin: 09/30/17 08:54 Dose: 1 tab Olanzapine (Zyprexa Tab*) 10 mg PO BEDTIME ANGIE Last Admin: 09/29/17 20:47 Dose: 10 mg
[2017-09-30] MEDS: Cyproheptadine TAB* 4 MG PO SCH ×2 (11:22→16:12)
--- NOTE | 2017-09-30 11:48 | PN ---
MHU: Group Therapy Note - Service Type Service Type: [id number] Group Psychotherapy - Cognitive Behavioral Group Therapy ( CBT):Patient was attentive and participatory in CBT programming this morning, and remained in good behavioral control. Patient expressed positive insights regarding relevant treatment interventions and goals.
--- NOTE | 2017-09-30 16:49 | PN ---
MHU: Group Therapy Note - Service Type Service Type: [id number] Group Psychotherapy - Medication Education Group: Patient was attentive and participatory in group, and remained in good behavioral control. Patient expressed positive insights regarding relevant treatment interventions. Patient stated understanding of material discussed and had appropriate questions.
[2017-09-30] MEDS: OLANzapine TAB* 10 MG PO SCH (21:39)
[2017-10-01] MEDS: Vitamin THERAPEUTIC TAB PO SCH (08:51)
[2017-10-01] MEDS: Cyproheptadine TAB* 4 MG PO SCH ×2 (08:51→15:29)
--- NOTE | 2017-10-01 10:38 | PN ---
Subjective - Subjective Subjective: psychiatric attending progress note: Per nursing patient is seclusive and has only occasional social interactions with other patients on the unit. SHe presents as having flat and dysphoric affect. She rarely initiates conversation She has marked psychomotor slowing with decreased spontaneity and fluency of speech. Thought content remains impoverished. denies hallucinations. no evidence of active delusons. overall mood is irritable at times. occasionally smiles and will express interest but mostly responds verbally only when directly questioned. mostly preoccupied with seeing her children. She appears to have very limited insight. Her judgment is impaired she has very poor ADL's with unclean matted hair. Her clothing is stained. she tells me she has very few articles of clothing here. tolerating medication well without side effects. reports that she is eating better is very underweight, has temporal wasting Impression: scizophrenia continuous post onset Plan: Zyprexa 10 mg qhs cyproheptadine 4 mg BID Assessment - Assessment Inpatient DSM-V Dx: F20.0 Clinical Impression: 52 year old woman with schizophrenia post onset (20 years ago) who was discharged from [facility] 2 weeks ago after a 5 year hospital stay. At this time, patient has mostly negative symptoms including affective flattenting, poor ADL's, impoverished thinking/speech She also appears depressed and has psychomotor slowing. she shows no evidence of paranoia, delusional beliefs, perceptual disturbances, suicidality, or agression. She is very underweight (105 pounds). goal of hospitalization is to find suitable placement, stabalize patient on medication regimen for maintenance treatment of her psychotic disorder, improve her nutritional status and establish regimen which supports weight gain. Plan - Plan Treatment Plan: Plan: Zyprexa 10 mg for maintenance treatment of Schizophrenia Cyproheptadine 4 mg BID to stimulate appetite Ensure Plus 4 cans daily. patient agrees to drink them follow weight weekly for weight gain facillitate visitation with children if possible discharge planning per social work. my recommendatin would be that patient will need some degree of supervision as I do not feel she will be able to manage all the challenges of living independently. food stamps, barron assistance, SS/disability are all entitlements which patient qualifies for. I encouraged her to seek SSI if she doesnt already receive it. Medications: Current Medications Acetaminophen (Tylenol Tab*) 650 mg PO Q4H PRN PRN Reason: PAIN or TEMP > 101 F Al Hydrox/Mg Hydrox/Simethicone (Maalox Plus*) 30 ml PO Q4H PRN PRN Reason: INDIGESTION Cyproheptadine HCl (Periactin Tab*) 4 mg PO BID@,16 [facility] Last Admin: 10/01/17 08:51 Dose: 4 mg Multivitamins (Theragran Tab*) 1 tab PO DAILY [facility] Last Admin: 10/01/17 08:51 Dose: 1 tab Olanzapine (Zyprexa Tab*) 10 mg PO BEDTIME [facility] Last Admin: 09/30/17 21:39 Dose: 10 mg
--- NOTE | 2017-10-01 11:45 | PN ---
MHU: Group Therapy Note - Service Type Service Type: [id number] Group Psychotherapy - Cognitive Behavioral Group Therapy ( CBT):Patient attended CBT programming this morning and presented with flat affect that did not vary with discussion. Although responsive to direct prompts to respond to questions, patient did not engage in spontaneous conversation.
[2017-10-01] MEDS: OLANzapine TAB* 10 MG PO SCH (20:54)
[2017-10-02] MEDS: Vitamin THERAPEUTIC TAB PO SCH (09:26)
[2017-10-02] MEDS: Cyproheptadine TAB* 4 MG PO SCH ×2 (09:26→15:51)
[2017-10-02] MEDS: OLANzapine TAB* 10 MG PO SCH (20:40)
[2017-10-03] MEDS: Cyproheptadine TAB* 4 MG PO SCH ×2 (09:32→16:34)
[2017-10-03] MEDS: Vitamin THERAPEUTIC TAB PO SCH (09:32)
[2017-10-03] MEDS: OLANzapine TAB* 10 MG PO SCH (21:11)
[2017-10-04] MEDS: Cyproheptadine TAB* 4 MG PO SCH ×2 (09:31→16:24)
[2017-10-04] MEDS: Vitamin THERAPEUTIC TAB PO SCH (09:31)
--- NOTE | 2017-10-04 10:51 | PN ---
Assessment - Assessment Inpatient DSM-V Dx: F20.0 Clinical Impression: 52 year old woman with schizophrenia post onset (20 years ago) who was discharged from [facility] 2 weeks ago after a 5 year hospital stay. At this time, patient has mostly negative symptoms including affective flattenting, poor ADL's, impoverished thinking/speech She also appears depressed and has psychomotor slowing. she shows no evidence of paranoia, delusional beliefs, perceptual disturbances, suicidality, or agression. She is very underweight (105 pounds). goal of hospitalization is to find suitable placement, stabalize patient on medication regimen for maintenance treatment of her psychotic disorder, improve her nutritional status and establish regimen which supports weight gain. Plan - Plan Treatment Plan: Plan: Zyprexa 10 mg for maintenance treatment of Schizophrenia Cyproheptadine 4 mg BID to stimulate appetite Ensure Plus 4 cans daily. patient agrees to drink them follow weight weekly for weight gain facillitate visitation with children if possible discharge planning per social work. my recommendatin would be that patient will need some degree of supervision as I do not feel she will be able to manage all the challenges of living independently. food stamps, barron assistance, SS/disability are all entitlements which patient qualifies for. I encouraged her to seek SSI if she doesnt already receive it. Medications: Current Medications Acetaminophen (Tylenol Tab*) 650 mg PO Q4H PRN PRN Reason: PAIN or TEMP > 101 F Al Hydrox/Mg Hydrox/Simethicone (Maalox Plus*) 30 ml PO Q4H PRN PRN Reason: INDIGESTION Cyproheptadine HCl (Periactin Tab*) 4 mg PO BID@,16 [facility] Last Admin: 10/04/17 09:31 Dose: 4 mg Multivitamins (Theragran Tab*) 1 tab PO DAILY ANGIE Last Admin: 10/04/17 09:31 Dose: 1 tab Olanzapine (Zyprexa Tab*) 10 mg PO BEDTIME ANGIE Last Admin: 10/03/17 21:11 Dose: 10 mg
--- NOTE | 2017-10-04 11:43 | PN ---
MHU: Group Therapy Note - Service Type Service Type: [id number] Group Psychotherapy - Cognitive Behavioral Group Therapy ( CBT):Patient was attentive and participatory in CBT programming this morning, and remained in good behavioral control. Patient expressed positive insights regarding relevant treatment interventions and goals.
--- NOTE | 2017-10-04 19:05 | PN ---
Subjective - Subjective Subjective: psychiatric attending progress note: brighter affect today. better related. greater range of affect noted. continues to have impaired hygiene. Told me that meeting held today with . He told her he wishes divorce. After discharge from hospital will be willing to bring daugters to public retaurant for first visit with mother. although at first patient told me that had told her that he would not bring children to meet with her. MSE: denies AH,VH suspicious at times TC no ingestions TP organized goal iderected. compliant with medications Impression/plan schizophrenia continue zyprexa 10 mg qhs ciproheptadine bid Assessment - Assessment Inpatient DSM-V Dx: F20.0 Clinical Impression: 52 year old woman with schizophrenia post onset (20 years ago) who was discharged from [facility] 2 weeks ago after a 5 year hospital stay. At this time, patient has mostly negative symptoms including affective flattenting, poor ADL's, impoverished thinking/speech She also appears depressed and has psychomotor slowing. she shows no evidence of paranoia, delusional beliefs, perceptual disturbances, suicidality, or agression. She is very underweight (105 pounds). goal of hospitalization is to find suitable placement, stabalize patient on medication regimen for maintenance treatment of her psychotic disorder, improve her nutritional status and establish regimen which supports weight gain. Plan - Plan Treatment Plan: Plan: Zyprexa 10 mg for maintenance treatment of Schizophrenia Cyproheptadine 4 mg BID to stimulate appetite Ensure Plus 4 cans daily. patient agrees to drink them follow weight weekly for weight gain facillitate visitation with children if possible discharge planning per social work. my recommendatin would be that patient will need some degree of supervision as I do not feel she will be able to manage all the challenges of living independently. food stamps, barron assistance, SS/disability are all entitlements which patient qualifies for. I encouraged her to seek SSI if she doesnt already receive it. Medications: Current Medications Acetaminophen (Tylenol Tab*) 650 mg PO Q4H PRN PRN Reason: PAIN or TEMP > 101 F Al Hydrox/Mg Hydrox/Simethicone (Maalox Plus*) 30 ml PO Q4H PRN PRN Reason: INDIGESTION Cyproheptadine HCl (Periactin Tab*) 4 mg PO BID@09,16 ANGIE Last Admin: 10/04/17 16:24 Dose: 4 mg Multivitamins (Theragran Tab*) 1 tab PO DAILY ANGIE Last Admin: 10/04/17 09:31 Dose: 1 tab Olanzapine (Zyprexa Tab*) 10 mg PO BEDTIME [facility] Last Admin: 10/03/17 21:11 Dose: 10 mg
[2017-10-04] MEDS: OLANzapine TAB* 10 MG PO SCH (21:00)
[2017-10-05] MEDS: Vitamin THERAPEUTIC TAB PO SCH (09:13)
[2017-10-05] MEDS: Cyproheptadine TAB* 4 MG PO SCH ×2 (09:14→15:34)
--- NOTE | 2017-10-05 18:02 | PN ---
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 had swelling on left side of face earlier this morning PE: no cervical,submandibular,preauricular lymphadenopathy buccal swelling noted left face does not extend to orbital area does not feel hot/warm to palpation no rash or xanthem noted on face or body patient denies constitutional symptoms of sob, tachycardia, dizziness, headpain, difficulty swallowing denies history of edema in past denies allergies reports urinary frequency past two days vitals stable patient is a febrile MSE: brighter mood and affect more talkative better hygiene no evidence of positive psychotic symptoms impression: unilateral facial swelling rule out angioedema secondary to zyprexa versus allergy versus infection rule out parotitis rule out early cellulitis rule out dental infection urinary frequency rule out UTI Plan: d/c ciproheptadine cbc, c1 esterase inhibitor functioning, cmp, liver panel, amylase, ESR observe for now consider zyprexa induced but will wait for lab results before discontinuing zyprexa Assessment - Assessment Inpatient DSM-V Dx: F20.0 Clinical Impression: 52 year old woman with schizophrenia post onset (20 years ago) who was discharged from [facility] 2 weeks ago after a 5 year hospital stay. At this time, patient has mostly negative symptoms including affective flattenting, poor ADL's, impoverished thinking/speech She also appears depressed and has psychomotor slowing. she shows no evidence of paranoia, delusional beliefs, perceptual disturbances, suicidality, or agression. She is very underweight (105 pounds). goal of hospitalization is to find suitable placement, stabalize patient on medication regimen for maintenance treatment of her psychotic disorder, improve her nutritional status and establish regimen which supports weight gain. Plan - Plan Treatment Plan: Plan: Zyprexa 10 mg for maintenance treatment of Schizophrenia Cyproheptadine 4 mg BID to stimulate appetite Ensure Plus 4 cans daily. patient agrees to drink them follow weight weekly for weight gain facillitate visitation with children if possible discharge planning per social work. my recommendatin would be that patient will need some degree of supervision as I do not feel she will be able to manage all the challenges of living independently. food stamps, barron assistance, SS/disability are all entitlements which patient qualifies for. I encouraged her to seek SSI if she doesnt already receive it. Medications: Current Medications Acetaminophen (Tylenol Tab*) 650 mg PO Q4H PRN PRN Reason: PAIN or TEMP > 101 F Al Hydrox/Mg Hydrox/Simethicone (Maalox Plus*) 30 ml PO Q4H PRN PRN Reason: INDIGESTION Multivitamins (Theragran Tab*) 1 tab PO DAILY [facility] Last Admin: 10/05/17 09:13 Dose: 1 tab Olanzapine (Zyprexa Tab*) 10 mg PO BEDTIME [facility] Last Admin: 10/04/17 21:00 Dose: 10 mg
[2017-10-05] MEDS: OLANzapine TAB* 10 MG PO SCH (21:11)
[2017-10-05 21:17] LABS: Urine Appearance Clear; Urine Blood Negative (Negative); Urine Color Yellow; Urine Ketones Negative (Negative); Urine Protein Negative (Negative); Urine Specific Gravity 1.014 (1.010-1.030); Urine Urobilinogen Negative (Negative)
[2017-10-06 07:31] LABS: ABS Basophils 0 10^3/ul (0-0.2); ABS Eosinophils 0.1 10^3/ul (0-0.6); ABS Lymphocytes 2.1 10^3/ul (1.0-4.8); ABS Monocytes 0.7 10^3/ul (0-0.8); ABS Neutrophils 4.4 10^3/ul (1.5-7.7); ABS Nucleated RBC 0 10^3/ul; Hematocrit 32 % (35-47); Hemoglobin 10.7 g/dl (12.0-16.0); Lymphocyte % 28.6 % (25-47); Mean Corpuscular HGB Conc 34 g/dl (31-36); Mean Corpuscular Hemoglobin 29 pg (27-31); Mean Corpuscular Volume 88 fL (80-97); Mean Platelet Volume 7 um3 (7.4-10.4); Nucleated Red Blood Cells % 0.1; Platelet Count 351 10^3/ul (150-450); Red Blood Count 3.65 10^6/ul (4.0-5.4); Red Cell Distribution Width 15 % (10.5-15); White Blood Count 7.4 10^3/ul (3.5-10.8)
[2017-10-06] MEDS: Vitamin THERAPEUTIC TAB PO SCH (09:13)
[2017-10-06 09:20] LABS: EGFR Non-African American 109.2 (>60)
--- NOTE | 2017-10-06 10:39 | PN ---
Subjective - Subjective Subjective: psychiatric attending progress note attending group, hopeful for discharge to transitional program or to her own apartment. facial swelling decreased today Labs drawn reveal hemeglobin is down to 10.7 with normal mcv and normal RDW patient has stable vitals. cmp unremarkable with exception of borderline low normal total protein, albumin, calcium. amylase minimally elevated at 144. patient denies dental pain, gum inflammation, rash, eye pain, ear pain, leg swelling, Upper respiratory symptoms, nasal discharge, sinus pain. MSE: euthymic affect blunted which is baseline TP: impoverished, diminished fluency and spontaneity but organized and coherent TC: no evidence of paranoia, delusions, perceptual disturbances insight fair judgment fair impression: patient has unilateral facial swelling which likely represent angioedema of unknown etiology. it is getting better. possible secondary to ciproheptadine which I stopped yesterday but medication related angioedema is usually not unilateral in one location. schizophrenia without positive psychotic symptoms and stable on Zyprexa. continues with negative symptoms Plan: observe facial swelling for now. expect it will resolve completely zyprexa 10 mg daily discharge planning per social work Assessment - Assessment Inpatient DSM-V Dx: F20.0 Clinical Impression: 52 year old woman with schizophrenia post onset (20 years ago) who was discharged from [facility] 2 weeks ago after a 5 year hospital stay. At this time, patient has mostly negative symptoms including affective flattenting, poor ADL's, impoverished thinking/speech She also appears depressed and has psychomotor slowing. she shows no evidence of paranoia, delusional beliefs, perceptual disturbances, suicidality, or agression. She is very underweight (105 pounds). goal of hospitalization is to find suitable placement, stabalize patient on medication regimen for maintenance treatment of her psychotic disorder, improve her nutritional status and establish regimen which supports weight gain. Plan - Plan Treatment Plan: Plan: Zyprexa 10 mg for maintenance treatment of Schizophrenia Cyproheptadine 4 mg BID to stimulate appetite Ensure Plus 4 cans daily. patient agrees to drink them follow weight weekly for weight gain facillitate visitation with children if possible discharge planning per social work. my recommendatin would be that patient will need some degree of supervision as I do not feel she will be able to manage all the challenges of living independently. food stamps, barron assistance, SS/disability are all entitlements which patient qualifies for. I encouraged her to seek SSI if she doesnt already receive it. Medications: Current Medications Acetaminophen (Tylenol Tab*) 650 mg PO Q4H PRN PRN Reason: PAIN or TEMP > 101 F Al Hydrox/Mg Hydrox/Simethicone (Maalox Plus*) 30 ml PO Q4H PRN PRN Reason: INDIGESTION Multivitamins (Theragran Tab*) 1 tab PO DAILY [facility] Last Admin: 10/06/17 09:13 Dose: 1 tab Olanzapine (Zyprexa Tab*) 10 mg PO BEDTIME [facility] Last Admin: 10/05/17 21:11 Dose: 10 mg
[2017-10-06] MEDS: OLANzapine TAB* 10 MG PO SCH (20:11)
[2017-10-07] MEDS: Vitamin THERAPEUTIC TAB PO SCH (09:27)
--- NOTE | 2017-10-07 11:55 | PN ---
MHU: Group Therapy Note - Service Type Service Type: [id number] Group Psychotherapy - Cognitive Behavioral Group Therapy ( CBT):Patient was attentive and participatory in CBT programming this morning, and remained in good behavioral control. Patient expressed positive insights regarding relevant treatment interventions and goals.
[2017-10-07] MEDS: OLANzapine TAB* 10 MG PO SCH (21:20)
[2017-10-08] MEDS: Vitamin THERAPEUTIC TAB PO SCH (07:56)
--- NOTE | 2017-10-08 11:55 | PN ---
MHU: Group Therapy Note - Service Type Service Type: [id number] Group Psychotherapy - Cognitive Behavioral Group Therapy ( CBT):Patient was attentive and participatory in CBT programming this morning, and remained in good behavioral control. Patient expressed positive insights regarding relevant treatment interventions and goals.
--- NOTE | 2017-10-08 18:36 | PN ---
Subjective - Subjective Subjective: Psychiatric Attending Progress Note social worder Yesy Grace's eloquent progress note documenting therpeutic time spent with patient reviewed and appreciated. This provider shares Ms. Grace's clinical impressions. patient's mental status reveals her to be coherent, articulate, without signs of depression, gabby, agitation, or psychosis. Patient does have persistent negative signs of schizophrenia but these do not interfere with her ability to function Patient has excellent insight and her judgment is intact. no evidence that she is danger to self and others. She is hopeful that she will be reunited soon with her family. facial swellinig almost completely remitted denies side effects from Zyprexa Objective - Appearance Appearance: Thin Framed Dysmorphic Features: No Hygiene: Dirty Grooming: Disheveled - Behavior Psychomotor Activities: Abnormal-Decreased - Attitude and Relatedness Attitude and Relatedness: Cooperative Eye Contact: Good - Speech Quality: Unpressured Latencies: Normal Quantity: Appropriate - Mood Patient's Decription of Mood: "Good" - Affect Observed Affect: Non-labile Affect Consistent with: Euthymia - Thought Process Patient's Thought Process: Coherent Thought Content: No Passive Wish, No Suicidal Planning, No Homicidal Ideation, No Paranoid Ideation - Sensorium Experiencing Hallucinations: No, Sensorium is Clear Type of Hallucinations: Visual: No, Auditory: No, Command: No - Level of Consciousness Level of Consciousness: Alert Orientation: Yes Intact, Yes Orientated to Time, Yes Orientated to Place, Yes Orientated to Person - Impulse Control Impulse Control: Intact - Insight and Judgement Insight and Judgement: Fair - Group Participation Particating in Group Activities: Yes - Medication Management Medication Management Adherence: Yes Assessment - Assessment Inpatient DSM-V Dx: F20.0 Clinical Impression: 52 year old woman with schizophrenia post onset (20 years ago) who was discharged from [facility] 2 weeks ago after a 5 year hospital stay. At this time, patient has mostly negative symptoms including affective flattenting, poor ADL's, impoverished thinking/speech She also appears depressed and has psychomotor slowing. she shows no evidence of paranoia, delusional beliefs, perceptual disturbances, suicidality, or agression. She is very underweight (105 pounds). goal of hospitalization is to find suitable placement, stabalize patient on medication regimen for maintenance treatment of her psychotic disorder, improve her nutritional status and establish regimen which supports weight gain. Plan - Plan Treatment Plan: Plan: Zyprexa 10 mg for maintenance treatment of Schizophrenia Ensure Plus 3 cans daily. patient agrees to drink them follow weight weekly for weight gain facillitate visitation with children if possible discharge planning per social work. food stamps, barron assistance, SS/disability are all entitlements which patient qualifies for. I encouraged her to seek SSI if she doesnt already receive it. Medications: Current Medications Acetaminophen (Tylenol Tab*) 650 mg PO Q4H PRN PRN Reason: PAIN or TEMP > 101 F Al Hydrox/Mg Hydrox/Simethicone (Maalox Plus*) 30 ml PO Q4H PRN PRN Reason: INDIGESTION Multivitamins (Theragran Tab*) 1 tab PO DAILY [facility] Last Admin: 10/08/17 07:56 Dose: 1 tab Olanzapine (Zyprexa Tab*) 10 mg PO BEDTIME [facility] Last Admin: 10/07/17 21:20 Dose: 10 mg
[2017-10-08] MEDS: OLANzapine TAB* 10 MG PO SCH (20:02)
[2017-10-09] MEDS: Vitamin THERAPEUTIC TAB PO SCH (08:36)
[2017-10-09] MEDS: OLANzapine TAB* 10 MG PO SCH (20:51)
[2017-10-10] MEDS: Vitamin THERAPEUTIC TAB PO SCH (08:29)
[2017-10-10] MEDS: OLANzapine TAB* 10 MG PO SCH (20:55)
[2017-10-11] MEDS: Vitamin THERAPEUTIC TAB PO SCH (08:21)
--- NOTE | 2017-10-11 16:32 | PN ---
Subjective - Subjective Service Type: [id number] Hosp care 15 min low complexity Subjective: Patient seen by continuity writer for coverage in attending prescriber's absence. Patient reports guilt and laments "losing the last 5 years of my life." She eludes to being responsible for being hospitalized at [facility]. She states she must take responsibility. She states she is hopeful to have contact with her teenage children. She is tearful and states "it's hard to deal with reality." Business Banking Representative praised patient for her strength and encouraged her to not blame self for illness. Objective - Appearance Appearance: Well Developed/Nourished Dysmorphic Features: Yes Hygiene: Normal Grooming: Well Kept - Behavior Psychomotor Activities: Normal Exhibits Abnormal Movement: No - Attitude and Relatedness Attitude and Relatedness: Cooperative - Speech Quality: Unpressured Latencies: Normal Quantity: Appropriate - Mood Patient's Decription of Mood: "Sad" - Affect Observed Affect: Depressed Affect Consistent with: Dysphoria - Thought Process Patient's Thought Process: Coherent, Goal Directed, Circumstantial Thought Content: No Passive Wish, No Suicidal Planning, No Homicidal Ideation, No Paranoid Ideation - Sensorium Experiencing Hallucinations: No, Sensorium is Clear Type of Hallucinations: Visual: No, Auditory: No, Command: No - Level of Consciousness Level of Consciousness: Alert Orientation: Yes Intact, Yes Orientated to Time, Yes Orientated to Place, Yes Orientated to Person - Impulse Control Impulse Control: Intact - Insight and Judgement Insight and Judgement: Good - Group Participation Particating in Group Activities: Yes - Medication Management Medication Management Adherence: Yes Assessment - Assessment Merits Inpatient Hospitalization: For Immediate Safety, For Stabilization, Pending Safe DC Plan Inpatient DSM-V Dx: F20.0 Clinical Impression: 52 year old woman with schizophrenia post onset (20 years ago) who was discharged from [facility] facility recently after a 5 year hospital stay. She is responding well to medication changes and receptive to social work efforts to establish services in [place]. Plan - Plan Treatment Plan: Name: JENNIFER FELIZ Birthdate: 1965 [id number] continue acute intensive psychiatric treatment. awaiting safe discharge plan. Continued Medication Management: Different Medication Medications: Current Medications Acetaminophen (Tylenol Tab*) 650 mg PO Q4H PRN PRN Reason: PAIN or TEMP > 101 F Al Hydrox/Mg Hydrox/Simethicone (Maalox Plus*) 30 ml PO Q4H PRN PRN Reason: INDIGESTION Multivitamins (Theragran Tab*) 1 tab PO DAILY [facility] Last Admin: 10/11/17 08:21 Dose: 1 tab Olanzapine (Zyprexa Tab*) 10 mg PO BEDTIME [facility] Last Admin: 10/10/17 20:55 Dose: 10 mg - Discharge Plan Discharge Plan: Outpatient Follow Up Outpatient Program: [facility]
[2017-10-11] MEDS: OLANzapine TAB* 10 MG PO SCH (20:56)
[2017-10-12] MEDS: Vitamin THERAPEUTIC TAB PO SCH (08:44)
--- NOTE | 2017-10-12 12:24 | PN ---
Subjective - Subjective Subjective: psychiatric attending progress note patient's mental status has significantly improved since admission with improved ADL's and relatedness. She attends groups daily. She is more spontaneous with increased speech fluency. her affect and mood are brighter. increased range of affect. Patient's insight quite good (tells me that in past when depressed she will not take her medication) judgment clearly intact (patient understands that she should live in assisted living program, take her medication, accepts diagnosis, understands husbands concerns about children, verbalizes intention of doing what she needs to do so she can reunite with her children) no evidence of positive psychotic symptoms at present time. she tells me that she went with sr. social media & mobile manager today to look at two community placements. she very much liked one of them and wishes to live there. patient has excellent appetite and is gaining weight here, which is also sign that her depression is remitting. Impression: patient's symptoms are more consistent with Schizoaffective Disorder depressed type Plan: zyprexa 10mg daily possible d/c this week to community supportive residential placement f/u with [facility] Assessment - Assessment Inpatient DSM-V Dx: F20.0
[2017-10-12] MEDS: OLANzapine TAB* 10 MG PO SCH (20:29)
[2017-10-13] MEDS: Acetaminophen TAB* 325 MG PO PRN (08:14)
[2017-10-13] MEDS: Vitamin THERAPEUTIC TAB PO SCH (08:14)
--- NOTE | 2017-10-13 12:56 | PN ---
MHU: Group Therapy Note - Service Type Service Type: [id number] Group Psychotherapy - Cognitive Behavioral Group Therapy ( CBT):Patient was attentive and participatory in CBT programming this morning, and remained in good behavioral control. Patient expressed positive insights regarding relevant treatment interventions and goals.
[2017-10-13] MEDS: OLANzapine TAB* 10 MG PO SCH (20:30)
[2017-10-14] MEDS: Vitamin THERAPEUTIC TAB PO SCH (09:04)
--- NOTE | 2017-10-14 11:24 | PN ---
Subjective - Subjective Subjective: psychiatric attending progress note: continues to function quite well on unit without any behavioral difficulties. cooperative with nursing and participating in groups and in discharge planning efforts. looking forward to transitioning to community group living. very happy that she will be reunited with her children. MSE: unchanged from yesterday. well related good eye contact speech normal TP organized, improved fluency and spontaneity TC: no evidence of positive psychotic symptoms. alert and oriented insight fair judgment: fair impression: schizoaffective disorder currently euthymic with residual negative symptoms but not having positive symptoms at present time. Plan: zyprexa 10 mg daily awaiting discharge to community placement Assessment - Assessment Inpatient DSM-V Dx: F20.0 Clinical Impression: 52 year old woman with schizophrenia post onset (20 years ago) who was discharged from [facility] facility 2 weeks ago after a 5 year hospital stay. At this time, patient has mostly negative symptoms including affective flattenting, poor ADL's, impoverished thinking/speech She also appears depressed and has psychomotor slowing. she shows no evidence of paranoia, delusional beliefs, perceptual disturbances, suicidality, or agression. She is very underweight (105 pounds). goal of hospitalization is to find suitable placement, stabalize patient on medication regimen for maintenance treatment of her psychotic disorder, improve her nutritional status and establish regimen which supports weight gain. Plan - Plan Treatment Plan: Plan: Zyprexa 10 mg for maintenance treatment of Schizophrenia Ensure Plus 3 cans daily. patient agrees to drink them follow weight weekly for weight gain facillitate visitation with children if possible discharge planning per social work. food stamps, [place] assistance, SS/disability are all entitlements which patient qualifies for. I encouraged her to seek SSI if she doesnt already receive it. Medications: Current Medications Acetaminophen (Tylenol Tab*) 650 mg PO Q4H PRN PRN Reason: PAIN or TEMP > 101 F Last Admin: 10/13/17 08:14 Dose: 650 mg Al Hydrox/Mg Hydrox/Simethicone (Maalox Plus*) 30 ml PO Q4H PRN PRN Reason: INDIGESTION Multivitamins (Theragran Tab*) 1 tab PO DAILY [facility] Last Admin: 10/14/17 09:04 Dose: 1 tab Olanzapine (Zyprexa Tab*) 10 mg PO BEDTIME [facility] Last Admin: 10/13/17 20:30 Dose: 10 mg
--- NOTE | 2017-10-14 13:54 | PN ---
MHU: Group Therapy Note - Service Type Service Type: [id number] Group Psychotherapy - Cognitive Behavioral Group Therapy ( CBT):Patient was attentive and participatory in CBT programming this morning, and remained in good behavioral control. Patient expressed positive insights regarding relevant treatment interventions and goals. Mady demonstrates euthymic mood, responding positively to discussion and exhibiting her sense of humor.
--- NOTE | 2017-10-14 16:31 | PN ---
MHU: Group Therapy Note - Service Type Service Type: [id number] Group Psychotherapy - Medication Education Group: Patient was attentive and participatory in group, and remained in good behavioral control. Patient expressed positive insights regarding relevant treatment interventions. Patient stated understanding of material discussed and had appropriate questions.
[2017-10-14] MEDS: OLANzapine TAB* 10 MG PO SCH (20:36)
[2017-10-15] MEDS: Vitamin THERAPEUTIC TAB PO SCH (08:58)
--- NOTE | 2017-10-15 11:20 | PN ---
Subjective - Subjective Subjective: psychiatric attending progress note: patient continues to make gains on the U. she is readying herself to transition from hospital unit to supportive housing at [facility] which will occur next week when payment issues are finalized. Patient now has [facility] Medicaid. She offers no complaints. She is sleeping well and denies any side effects from Olanzapine. She looks forward to reunification with her children. Objective - Appearance Appearance: Thin Framed Dysmorphic Features: No Hygiene: Dirty Grooming: Disheveled - Behavior Psychomotor Activities: Normal Exhibits Abnormal Movement: No - Attitude and Relatedness Attitude and Relatedness: Needy Eye Contact: Fair - Speech Quality: Unpressured Latencies: Normal Quantity: Appropriate - Mood Patient's Decription of Mood: "Good" - Affect Observed Affect: Constricted Affect Consistent with: Euthymia - Thought Process Patient's Thought Process: Coherent, Goal Directed Thought Content: Yes Suicidal Planning, Yes Homicidal Ideation, Yes Paranoid Ideation - Sensorium Type of Hallucinations: Visual: No, Auditory: No, Command: No - Level of Consciousness Level of Consciousness: Alert Orientation: Yes Intact, Yes Orientated to Time, Yes Orientated to Place, Yes Orientated to Person - Impulse Control Impulse Control: Intact - Insight and Judgement Insight and Judgement: Fair - Group Participation Particating in Group Activities: Yes - Medication Management Medication Management Adherence: Yes Assessment - Assessment Inpatient DSM-V Dx: F20.0 Clinical Impression: 52 year old woman with schizophrenia post onset (20 years ago) who was discharged from [facility] 2 weeks ago after a 5 year hospital stay. At this time, patient has mostly negative symptoms including affective flattenting, poor ADL's, impoverished thinking/speech She also appears depressed and has psychomotor slowing. she shows no evidence of paranoia, delusional beliefs, perceptual disturbances, suicidality, or agression. She is very underweight (105 pounds). goal of hospitalization is to find suitable placement, stabalize patient on medication regimen for maintenance treatment of her psychotic disorder, improve her nutritional status and establish regimen which supports weight gain. Plan - Plan Treatment Plan: Plan: Zyprexa 10 mg for maintenance treatment of Schizophrenia Ensure Plus 3 cans daily. patient agrees to drink them follow weight weekly for weight gain facillitate visitation with children if possible discharge planning per social work. food stamps, [place] assistance, SS/disability are all entitlements which patient qualifies for. I encouraged her to seek SSI if she doesnt already receive it. Medications: Current Medications Acetaminophen (Tylenol Tab*) 650 mg PO Q4H PRN PRN Reason: PAIN or TEMP > 101 F Last Admin: 10/13/17 08:14 Dose: 650 mg Al Hydrox/Mg Hydrox/Simethicone (Maalox Plus*) 30 ml PO Q4H PRN PRN Reason: INDIGESTION Multivitamins (Theragran Tab*) 1 tab PO DAILY ANGIE Last Admin: 10/15/17 08:58 Dose: 1 tab Olanzapine (Zyprexa Tab*) 10 mg PO BEDTIME ANGIE Last Admin: 10/14/17 20:36 Dose: 10 mg
--- NOTE | 2017-10-15 12:02 | PN ---
MHU: Group Therapy Note - Service Type Service Type: [id number] Group Psychotherapy - Cognitive Behavioral Group Therapy ( CBT):Patient was attentive and participatory in CBT programming this morning, and remained in good behavioral control. Patient expressed positive insights regarding relevant treatment interventions and goals.
[2017-10-15] MEDS: OLANzapine TAB* 10 MG PO SCH (20:14)
[2017-10-16] MEDS: Acetaminophen TAB* 325 MG PO PRN (08:41)
[2017-10-16] MEDS: Vitamin THERAPEUTIC TAB PO SCH (08:41)
[2017-10-16] MEDS: OLANzapine TAB* 10 MG PO SCH (20:26)
[2017-10-17] MEDS: Vitamin THERAPEUTIC TAB PO SCH (08:51)
[2017-10-17] MEDS: OLANzapine TAB* 10 MG PO SCH (20:36)
[2017-10-18] MEDS: Vitamin THERAPEUTIC TAB PO SCH (08:20)
--- NOTE | 2017-10-18 13:16 | PN ---
MHU: Group Therapy Note - Service Type Service Type: [id number] Group Psychotherapy - Cognitive Behavioral Group Therapy ( CBT):Patient was attentive and participatory in CBT programming this morning, and remained in good behavioral control. Patient expressed positive insights regarding relevant treatment interventions and goals.
--- NOTE | 2017-10-18 14:03 | PN ---
Subjective - Subjective Subjective: Psychiatric Attending progress note: Weekend notes reviewed. Patient's behavioral and emotional functioning remain very stable. She meets criteria for discharge and for returning to community setting. MSE: performing ADL's attending all groups cooperative Mood euthymic affect: brighter than on admission TP organized TC: improved fluency, denies SI,HI,AH,VH no evidence of paranoia or delusions Alert and fully oriented Insight and Judgment intact Impression: Schizoaffective most recently depressed in remission. patient not actively psychotic s/p 5 year [facility] hospital stay ready for discharge Plan: d/c tomorrow to [facility] will be followed up by ACT team and [facility] Zyprexa 10 mg QHS Assessment - Assessment Inpatient DSM-V Dx: F20.0 Clinical Impression: 52 year old woman with schizophrenia post onset (20 years ago) who was discharged from [facility] facility 2 weeks ago after a 5 year hospital stay. At this time, patient has mostly negative symptoms including affective flattenting, poor ADL's, impoverished thinking/speech She also appears depressed and has psychomotor slowing. she shows no evidence of paranoia, delusional beliefs, perceptual disturbances, suicidality, or agression. She is very underweight (105 pounds). goal of hospitalization is to find suitable placement, stabalize patient on medication regimen for maintenance treatment of her psychotic disorder, improve her nutritional status and establish regimen which supports weight gain. Plan - Plan Treatment Plan: Plan: Zyprexa 10 mg for maintenance treatment of Schizophrenia Ensure Plus 3 cans daily. patient agrees to drink them follow weight weekly for weight gain facillitate visitation with children if possible discharge planning per social work. food stamps, [place] assistance, SS/disability are all entitlements which patient qualifies for. I encouraged her to seek SSI if she doesnt already receive it. Medications: Current Medications Acetaminophen (Tylenol Tab*) 650 mg PO Q4H PRN PRN Reason: PAIN or TEMP > 101 F Last Admin: 10/16/17 08:41 Dose: 650 mg Al Hydrox/Mg Hydrox/Simethicone (Maalox Plus*) 30 ml PO Q4H PRN PRN Reason: INDIGESTION Multivitamins (Theragran Tab*) 1 tab PO DAILY ANGIE Last Admin: 10/18/17 08:20 Dose: 1 tab Olanzapine (Zyprexa Tab*) 10 mg PO BEDTIME [facility] Last Admin: 10/17/17 20:36 Dose: 10 mg
[2017-10-18] MEDS: OLANzapine TAB* 10 MG PO SCH (20:43)
[2017-10-19] MEDS: Vitamin THERAPEUTIC TAB PO SCH (07:45)
[2017-10-19 08:28] VITALS: BP 140/81
--- NOTE | 2017-10-19 14:24 | DCNOTE ---
DC Assessment - Assessment Clinical Impression: 52 year old woman with schizophrenia post onset (20 years ago) who was discharged from [facility] 2 weeks ago after a 5 year hospital stay. At this time, patient has mostly negative symptoms including affective flattenting, poor ADL's, impoverished thinking/speech She also appears depressed and has psychomotor slowing. she shows no evidence of paranoia, delusional beliefs, perceptual disturbances, suicidality, or agression. She is very underweight (105 pounds). goal of hospitalization is to find suitable placement, stabalize patient on medication regimen for maintenance treatment of her psychotic disorder, improve her nutritional status and establish regimen which supports weight gain. Inpatient DSM-V Dx: F20.0 Discharge Planning - Discharge Planning Medications: Current Medications Acetaminophen (Tylenol Tab*) 650 mg PO Q4H PRN PRN Reason: PAIN or TEMP > 101 F Last Admin: 10/16/17 08:41 Dose: 650 mg Al Hydrox/Mg Hydrox/Simethicone (Maalox Plus*) 30 ml PO Q4H PRN PRN Reason: INDIGESTION Multivitamins (Theragran Tab*) 1 tab PO DAILY [facility] Last Admin: 10/19/17 07:45 Dose: 1 tab Olanzapine (Zyprexa Tab*) 10 mg PO BEDTIME [facility] Last Admin: 10/18/17 20:43 Dose: 10 mg Discharge Planning: Prescriptions provided for discharge [] Yes [] No Follow up care details as per social work arrangements. Patient response to discharge plan: [] eager for discharge [] agreeable with discharge plan [] ambivalent about discharge [] disagrees with discharge today
== END 2017-10-19 09:30 | disposition home or self-care (01) | DRG 750 ==
LOC: ED 13:19 → BSU 09-25 10:43
PROVIDERS: ADMIT Psychiatry & Neurology Psychiatry; ATTEND Psychiatry & Neurology Psychiatry
DX: F20.0 Paranoid schizophrenia (principal); E43 Unspecified severe protein-calorie malnutrition; Z68.1 Body mass index [BMI] 19.9 or less, adult; T78.3XXA Angioneurotic edema, initial encounter; X58.XXXA Exposure to other specified factors, initial encounter; Z81.8 Family history of other mental and behavioral disorders
CPT/HCPCS: 36415; 80053; 80061; 80076; 80307; 80320; 80329; 81003; 81015; 82150; 83036; 83520; 84443; 85025; 85652; 87086; 90853; 93005; 99222; 99231; 99232; 99238; 99285; A9270-GY; G0480

== ENCOUNTER 2022-01-27 11:27 | Inpatient (IN) ==
[2022-01-27] MEDS ORDERED: Lactated Ringers 1000 ml BAG 1,000 ML IV ONE (12:05)
[2022-01-27 12:33] LABS: ABS Monocytes 0.3 10^3/ul (0-0.8); ABS Neutrophils 4.3 10^3/ul (1.5-7.7); Eosinophil % 0.2 %; Hematocrit 40 % (35-47); Hemoglobin 12.8 g/dL (12.0-16.0); Mean Corpuscular HGB Conc 32 g/dL (31-36); Mean Corpuscular Hemoglobin 28 pg (27-31); Mean Corpuscular Volume 87 fL (80-97); Mean Platelet Volume 8.2 fL (7.4-10.4); Nucleated Red Blood Cells % 0.1; Platelet Count 247 10^3/uL (150-450); Red Blood Count 4.58 10^6 /uL (3.70-4.87); Red Cell Distribution Width 15 % (10-15); White Blood Count 5.7 10^3/uL (3.5-10.8)
[2022-01-27 12:46] LABS: Urine Appearance Clear; Urine Bilirubin Negative (Negative); Urine Blood Negative (Negative); Urine Color Yellow; Urine Glucose Negative (Negative); Urine Ketones Negative (Negative); Urine Nitrite Negative (Negative); Urine Protein Negative (Negative); Urine Specific Gravity 1.015 (1.002-1.030); Urine Urobilinogen Negative (Negative)
[2022-01-27 12:52] LABS: Urine Benzodiazepine Screen None Detected (None Detect); Urine Cannabinoids Screen None Detected (None Detect); Urine Opiates Screen None Detected (None Detect)
[2022-01-27 13:06] LABS: ALT 26 U/L (7-52); AST 28 U/L (13-39); Acetaminophen < 15 mcg/mL; Albumin 3.9 g/dL (3.2-5.2); Albumin/Globulin Ratio 1.5 (1-3); Alcohol, S < 13 mg/dL (<13); Alkaline Phosphatase 48 U/L (35-149); Anion Gap 5 mmol/L (2-11); Blood Urea Nitrogen 12 mg/dL (6-24); CO2 Carbon Dioxide 29 mmol/L (22-32); Calcium 9.2 mg/dL (8.6-10.3); Chloride 108 mmol/L (101-111); Globulin 2.6 g/dL (2-4); Glucose 106 mg/dL (70-100); Salicylate < 2.50 mg/dL (<30); Sodium 142 mmol/L (135-145); Total Protein 6.5 g/dL (6.4-8.9); eGFR CKD-EPI 80.4 (>60)
[2022-01-27 13:19] LABS: TSH Ultra Thyroid Stim Horm 1.17 mcIU/mL (0.34-5.60)
[2022-01-27] MEDS ORDERED: Al Hydrox/Mg Hydrox/Simet LIQ 30 ML UDC PO PRN (15:00)
[2022-01-28] MEDS: Vitamin THERAPEUTIC TAB PO SCH (09:48)
[2022-01-28] MEDS ORDERED: Lorazepam PYXIS KEY PRN (14:47)
[2022-01-28] MEDS ORDERED: LORazepam 2 mg VIAL 1 ml ONE (14:47)
[2022-01-28] MEDS ORDERED: LORazepam 2 mg VIAL 1 ml IM ONE (14:47)
[2022-01-29] MEDS: Vitamin THERAPEUTIC TAB PO SCH (09:13)
[2022-01-29 09:44] LABS: Vitamin D Total 25(OH) 30.1 ng/mL (20-50)
[2022-01-30] MEDS: Vitamin THERAPEUTIC TAB PO SCH (10:38)
[2022-01-31] MEDS: Vitamin THERAPEUTIC TAB PO SCH (09:27)
[2022-02-01] MEDS: Vitamin THERAPEUTIC TAB PO SCH (08:57)
[2022-02-02] MEDS: Vitamin THERAPEUTIC TAB PO SCH (10:08)
[2022-02-03] MEDS: Vitamin THERAPEUTIC TAB PO SCH (10:05)
[2022-02-04] MEDS: Vitamin THERAPEUTIC TAB PO SCH (09:06)
[2022-02-05] MEDS: Vitamin THERAPEUTIC TAB PO SCH (08:53)
[2022-02-06] MEDS: Vitamin THERAPEUTIC TAB PO SCH (08:24)
[2022-02-07] MEDS: Vitamin THERAPEUTIC TAB PO SCH (09:20)
[2022-02-08] MEDS: Vitamin THERAPEUTIC TAB PO SCH (09:39)
[2022-02-09] MEDS: Vitamin THERAPEUTIC TAB PO SCH (09:03)
[2022-02-26] MEDS ORDERED: Paliperidone SUSTENNA 234 MG/1.5 ML IM ONE (09:47)
[2022-03-02] MEDS ORDERED: Paliperidone SUSTENNA 156 MG/1 ML IM ONE (07:08)
[2022-03-02 07:46] VITALS: BP 149/91
== END 2022-03-02 13:18 | disposition home or self-care (01) | DRG 750 ==
LOC: ED 11:27 → EDHOLD 15:00 → BSU 16:43
PROVIDERS: ADMIT Student in an Organized Health Care Education/Training Program; ATTEND Student in an Organized Health Care Education/Training Program

== ENCOUNTER 2022-10-27 22:15 | Inpatient (IN) ==
[2022-10-27] MEDS ORDERED: Droperidol 5 MG/2 ML 2 ML VIAL IM ONE (22:22)
[2022-10-27 23:18] LABS: ABS Lymphocytes 1.4 10^3/ul (1.0-4.8); ABS Monocytes 0.5 10^3/ul (0-0.8); ABS Neutrophils 4.6 10^3/ul (1.5-7.7); Eosinophil % 0.4 %; Hematocrit 39 % (35-47); Hemoglobin 12.7 g/dL (12.0-16.0); Lymphocyte % 21.3 %; Mean Corpuscular Hemoglobin 29 pg (27-31); Mean Corpuscular Hgb Conc 33 g/dL (31-36); Mean Corpuscular Volume 89 fL (80-97); Mean Platelet Volume 7.2 fL (7.4-10.4); Nucleated Red Blood Cells % 0.1; Platelet Count 329 10^3/uL (150-450); Red Cell Distribution Width 13 % (10-15); White Blood Count 6.5 10^3/uL (3.5-10.8)
[2022-10-27 23:59] LABS: ALT 38 U/L (7-52); AST 35 U/L (13-39); Acetaminophen < 15 mcg/mL; Albumin 3.8 g/dL (3.2-5.2); Albumin/Globulin Ratio 1.4 (1-3); Alcohol, S < 13 mg/dL (<13); Alkaline Phosphatase 49 U/L (35-149); Anion Gap 6 mmol/L (2-11); Blood Urea Nitrogen 16 mg/dL (6-24); CO2 Carbon Dioxide 30 mmol/L (22-32); Calcium 9.2 mg/dL (8.6-10.3); Chloride 105 mmol/L (101-111); Globulin 2.8 g/dL (2-4); Glucose 99 mg/dL (70-100); Potassium 4.2 mmol/L (3.5-5.0); Salicylate < 2.50 mg/dL (<30); Sodium 141 mmol/L (135-145); Total Protein 6.6 g/dL (6.4-8.9); eGFR CKD-EPI 85.9 (>60)
[2022-10-28 00:13] LABS: TSH Ultra Thyroid Stim Horm 1.47 mcIU/mL (0.34-5.60)
[2022-10-28] MEDS ORDERED: Al Hydrox/Mg Hydrox/Simet LIQ 30 ML UDC PO PRN (09:37)
[2022-11-13] MEDS ORDERED: Paliperidone SUSTENNA 234 MG/1.5 ML IM ONE (12:30)
[2022-11-16] MEDS ORDERED: Paliperidone SUSTENNA 156 MG/1 ML IM ONE (09:33)
[2022-11-20] MEDS ORDERED: Lorazepam PYXIS KEY PRN (12:25)
[2022-11-20] MEDS ORDERED: LORazepam 2 mg VIAL 1 ml IM PRN (12:25)
[2022-11-20] MEDS ORDERED: LORazepam 2 mg VIAL 1 ml ONE (12:25)
[2022-11-21] MEDS: LORazepam 2 mg VIAL 1 ml IM PRN (07:51)
[2022-11-23] MEDS: LORazepam 2 mg VIAL 1 ml IM PRN (21:26)
[2022-12-03 14:22] LABS: ABS Basophils 0.1 10^3/uL (0.0-0.1); ABS Eosinophils 0.1 10^3/uL (0.0-0.5); ABS Lymphocytes 2.8 10^3/uL (1.0-4.8); ABS Monocytes 0.6 10^3/uL (0.0-0.9); ABS Neutrophils 4.2 10^3/uL (1.5-7.6); Eosinophil % 0.9 %; Hematocrit 40.5 % (35-45); Hemoglobin 13.3 g/dL (11.5-14.3); Lymphocyte % 36.1 %; Mean Corpuscular Hemoglobin 28.5 pg (27-33); Mean Corpuscular Hgb Conc 32.9 g/dL (31-36); Mean Corpuscular Volume 86.9 fL (80-97); Mean Platelet Volume 7.6 fL (7.5-11.2); Platelet Count 381 10^3/uL (150-450); Red Blood Count 4.67 10^6/uL (3.63-4.92); Red Cell Distribution Width 13.7 % (12-17); White Blood Count 7.7 10^3/uL (3.8-11.8)
[2022-12-03 17:43] LABS: HDL Cholesterol 83.3 mg/dL
[2022-12-10 10:14] LABS: ABS Basophils 0.1 10^3/uL (0.0-0.1); ABS Eosinophils 0.1 10^3/uL (0.0-0.5); ABS Lymphocytes 2.3 10^3/uL (1.0-4.8); ABS Monocytes 0.5 10^3/uL (0.0-0.9); ABS Neutrophils 3.5 10^3/uL (1.5-7.6); ABS Nucleated RBC 0.02 10^3/ul; Hemoglobin 13.8 g/dL (11.5-14.3); Lymphocyte % 35.9 %; Mean Corpuscular Hemoglobin 28.3 pg (27-33); Mean Corpuscular Hgb Conc 32.9 g/dL (31-36); Mean Corpuscular Volume 85.8 fL (80-97); Mean Platelet Volume 7.3 fL (7.5-11.2); Nucleated Red Blood Cells % 0.2 /100 WBC (0.0-0.4); Platelet Count 350 10^3/uL (150-450); Red Cell Distribution Width 13.8 % (12-17); White Blood Count 6.4 10^3/uL (3.8-11.8)
[2022-12-17 08:13] LABS: ABS Eosinophils 0.1 10^3/uL (0.0-0.5); ABS Lymphocytes 1.6 10^3/uL (1.0-4.8); ABS Monocytes 0.6 10^3/uL (0.0-0.9); ABS Neutrophils 3.8 10^3/uL (1.5-7.6); ABS Nucleated RBC 0.01 10^3/ul; Eosinophil % 1.4 %; Hematocrit 37.5 % (35-45); Hemoglobin 12.5 g/dL (11.5-14.3); Mean Corpuscular Hemoglobin 28.3 pg (27-33); Mean Corpuscular Hgb Conc 33.3 g/dL (31-36); Mean Corpuscular Volume 85.1 fL (80-97); Mean Platelet Volume 7.6 fL (7.5-11.2); Nucleated Red Blood Cells % 0.2 /100 WBC (0.0-0.4); Platelet Count 290 10^3/uL (150-450); Red Cell Distribution Width 13.7 % (12-17); White Blood Count 6.1 10^3/uL (3.8-11.8)
[2022-12-24 14:00] LABS: ABS Eosinophils 0.1 10^3/uL (0.0-0.5); ABS Lymphocytes 2.3 10^3/uL (1.0-4.8); ABS Monocytes 0.5 10^3/uL (0.0-0.9); ABS Neutrophils 4.2 10^3/uL (1.5-7.6); ABS Nucleated RBC 0.01 10^3/ul; Eosinophil % 1.1 %; Hematocrit 40.9 % (35-45); Hemoglobin 13.3 g/dL (11.5-14.3); Lymphocyte % 32.2 %; Mean Corpuscular Hemoglobin 27.7 pg (27-33); Mean Corpuscular Hgb Conc 32.5 g/dL (31-36); Mean Platelet Volume 7.7 fL (7.5-11.2); Nucleated Red Blood Cells % 0.1 /100 WBC (0.0-0.4); Platelet Count 354 10^3/uL (150-450); Red Blood Count 4.81 10^6/uL (3.63-4.92); Red Cell Distribution Width 14.2 % (12-17); White Blood Count 7.2 10^3/uL (3.8-11.8)
[2022-12-31 07:58] LABS: ABS Eosinophils 0.1 10^3/uL (0.0-0.5); ABS Lymphocytes 1.7 10^3/uL (1.0-4.8); ABS Monocytes 0.3 10^3/uL (0.0-0.9); ABS Neutrophils 4.3 10^3/uL (1.5-7.6); ABS Nucleated RBC 0.01 10^3/ul; Eosinophil % 1.3 %; Hematocrit 39.8 % (35-45); Hemoglobin 13.1 g/dL (11.5-14.3); Lymphocyte % 25.9 %; Mean Corpuscular Hemoglobin 28.3 pg (27-33); Mean Corpuscular Volume 85.8 fL (80-97); Mean Platelet Volume 7.3 fL (7.5-11.2); Nucleated Red Blood Cells % 0.1 /100 WBC (0.0-0.4); Platelet Count 356 10^3/uL (150-450); Red Blood Count 4.64 10^6/uL (3.63-4.92); Red Cell Distribution Width 14.1 % (12-17); White Blood Count 6.5 10^3/uL (3.8-11.8)
[2023-01-01 21:52] LABS: Clozapine 165 ng/mL (350-600); Clozapine & Norclozapine Level 215 ng/mL; Norclozapine 50 ng/mL
[2023-01-07 08:20] LABS: ABS Basophils 0.1 10^3/uL (0.0-0.1); ABS Eosinophils 0.1 10^3/uL (0.0-0.5); ABS Lymphocytes 1.6 10^3/uL (1.0-4.8); ABS Monocytes 0.5 10^3/uL (0.0-0.9); ABS Neutrophils 3.3 10^3/uL (1.5-7.6); Eosinophil % 1.5 %; Hematocrit 37.5 % (35-45); Hemoglobin 12.5 g/dL (11.5-14.3); Mean Corpuscular Hemoglobin 28.3 pg (27-33); Mean Corpuscular Hgb Conc 33.4 g/dL (31-36); Mean Corpuscular Volume 84.9 fL (80-97); Mean Platelet Volume 7.5 fL (7.5-11.2); Nucleated Red Blood Cells % 0.1 /100 WBC (0.0-0.4); Platelet Count 327 10^3/uL (150-450); Red Blood Count 4.42 10^6/uL (3.63-4.92); White Blood Count 5.5 10^3/uL (3.8-11.8)
[2023-01-10 09:07] VITALS: BP 174/106
[2023-01-13 10:19] LABS: ABS Basophils 0.1 10^3/uL (0.0-0.1); ABS Eosinophils 0.1 10^3/uL (0.0-0.5); ABS Lymphocytes 2.1 10^3/uL (1.0-4.8); ABS Monocytes 0.5 10^3/uL (0.0-0.9); Eosinophil % 1.1 %; Hemoglobin 13.6 g/dL (11.5-14.3); Lymphocyte % 31.2 %; Mean Corpuscular Hemoglobin 27.9 pg (27-33); Mean Corpuscular Hgb Conc 32.4 g/dL (31-36); Mean Platelet Volume 7.4 fL (7.5-11.2); Nucleated Red Blood Cells % 0.1 /100 WBC (0.0-0.4); Platelet Count 335 10^3/uL (150-450); Red Blood Count 4.89 10^6/uL (3.63-4.92); Red Cell Distribution Width 14.4 % (12-17); White Blood Count 6.7 10^3/uL (3.8-11.8)
[2023-01-14] MEDS ORDERED: LORazepam 2 mg VIAL 1 ml ONE (10:05)
== END 2023-01-14 11:40 | DRG 750 ==
LOC: ED 22:15 → EDHOLD 10-28 09:37 → BSU 10-28 10:53
PROVIDERS: ADMIT Psychiatry & Neurology Psychiatry; ATTEND Psychiatry & Neurology Psychiatry